=== PATIENT | female | born 1990 | race Caucasian/White ===

== ENCOUNTER → 2016-11-16 | Outpatient (CLI) | payer OTHER | LOC: MW.CHOBGYN 10:26 → MERGE 10:26 | PROVIDERS: ATTEND Nurse Practitioner Women's Health | DX: L68.0 Hirsutism (principal); N92.6 Irregular menstruation, unspecified; R63.5 Abnormal weight gain | CPT/HCPCS: 36415; 82627; 82670; 83001; 83002; 84144; 84146; 84402; 84439; 84443; 84703; G0145 ==

== ENCOUNTER → 2016-11-17 | Outpatient (CLI) | payer OTHER ==
--- NOTE | 2016-11-18 15:11 | US ---
EXAM DATE: 11/17/16 PATIENT'S AGE: 26 Patient: MARYAN [place] Facility: [place], [place] Site . Site : 1990 Study: US Pelvis [id number] 4:09:05 PM Ordering Physician: Brenda Rodriguez Final Report: CLINICAL HISTORY: Irregular periods for 3 to 4 month. TECHNIQUE: Real time, hawkins scale images were acquired of the pelvis using a transvaginal approach. Color Doppler analysis was performed of the ovaries. FINDINGS: The uterus measures 9.1 x 3.6 x 3.0 cm. Endometrial stripe measures 1 cm. Tiny amount of fluid noted in the endocervical canal . The ovaries demonstrate normal follicular development. The right ovary measures 2.6 x 1.5 x 1.8cm in size and the left ovary measures 2.6 x 1.9 x 2.7 T. The ovaries demonstrate normal blood flow on color Doppler analysis. There are no suspicious fluid collections within the cul-de-sac. IMPRESSION: Unremarkable pelvic ultrasound. 1 centimeter endometrial stripe. Dictated by Marika Jack MD @ Nov 18 2016 9:43AM (Electronic Signature) Report Signed by Proxy and Original Signed Document filed in the Medical Record. MTDD
== END ==
LOC: MW.US 14:40
PROVIDERS: ATTEND Nurse Practitioner Women's Health
DX: N92.6 Irregular menstruation, unspecified (principal); R63.5 Abnormal weight gain
CPT/HCPCS: 76830; 76830-26

== ENCOUNTER 2018-08-03 20:38 | Inpatient (IN) | payer OTHER ==
[2018-08-03] MEDS ORDERED: Butorphanol 1 MG/ML SDV IVPUSH PRN (22:16)
[2018-08-03] MEDS ORDERED: Water For Irrigation,Sterile 1,000 ML Container IRR PRN (22:16)
[2018-08-03] MEDS ORDERED: Sodium Chloride 0.9% 10 ML Syringe FLUSH PRN (22:16)
[2018-08-03] MEDS ORDERED: Misoprostol 200 MCG Tab PO PRN (22:16)
[2018-08-03] MEDS ORDERED: Sodium Chloride 0.9% 2.5 ML Syringe FLUSH PRN (22:16)
[2018-08-03] MEDS ORDERED: Lidocaine 1% 50 ML MDV INJECT PRN (22:16)
[2018-08-03] MEDS ORDERED: Methylergonovine 0.2 MG/1 ML Amp IM PRN (22:16)
[2018-08-03] MEDS ORDERED: Carboprost Tromethamine 250 MCG/1 ML Amp IM PRN (22:16)
[2018-08-03] MEDS ORDERED: Tranexamic Acid 1,000 MG in Sodium Chloride 0.9% 100 ML IV PRN (22:16)
[2018-08-03] MEDS ORDERED: NIFEdipine 30 MG Tab.ER PO ONE (22:19)
[2018-08-03] MEDS ORDERED: Terbutaline 1 MG/ML SDV SUBCUT PRN (22:20)
[2018-08-03] MEDS ORDERED: Misoprostol 25 MCG (1/4 of 100 MCG) Tab VAG PRN ×2 (22:20)
[2018-08-03] MEDS ORDERED: Misoprostol 25 MCG (1/4 of 100 MCG) Tab PO ONE (22:22)
[2018-08-03] MEDS ORDERED: Oxytocin/0.9 % Sodium Chloride 30 UNIT/500 ML BAG IV SCH ×2 (22:30)
[2018-08-03] MEDS ORDERED: Ampicillin 2 GM in Sodium Chloride 0.9% 100 ML IV ONE (23:18)
[2018-08-04] MEDS ORDERED: Misoprostol 25 MCG (1/4 of 100 MCG) Tab PO PRN (03:30)
[2018-08-04] MEDS: Nalbuphine 10 MG/1 ML Vial IVPUSH PRN ×2 (04:22→08:53)
[2018-08-04] MEDS: Ampicillin 1 GM in Sodium Chloride 0.9% 50 ML IV SCH ×4 (05:10→18:38)
[2018-08-04] MEDS ORDERED: Ampicillin 1 GM in Sodium Chloride 0.9% 50 ML IV SCH (05:30)
--- NOTE | 2018-08-04 08:09 | PCM.LDHP ---
L&D History of Present Illness - General Date of Service: 08/04/18 Admit Problem/Dx: Patient Status Order with Admit Dx/Problem 08/03/18 21:00 Patient Status [ADT] Routine 08/03/18 22:16 Patient Status [ADT] Routine Admission Diagnosis/Problem Admission Diagnosis/Problem Source of Information: Patient History Limitations: Reports: No Limitations - History of Present Illness Improves with: Reports: None Worsens with: Reports: None Associated Symptoms: Reports: N - Related Data Allergies/Adverse Reactions: Allergies Allergy/AdvReac Type Severity Reaction Status Date / Time No Known Allergies Allergy Verified 08/01/18 15:32 Home Medications: Home Meds [id number]/Dha/Fish Oil [ Gummies] 1 each PO DAILY 07/22/18 [ History] Omeprazole Magnesium [Prilosec Otc] 1 cap PO DAILY 07/25/18 [History] Acetaminophen [Tylenol Extra Strength] 1,000 mg PO Q6HR PRN 08/03/18 [History] NIFEdipine [Nifedipine ER] 1 tab PO DAILY 08/03/18 [History] Past Medical History Gastrointestinal History: Reports: Other (See Below) Other Gastrointestinal History: Appendix removal with some of her large intestines [employer] History: Reports: Polycystic Ovaries, Musculoskeletal History: Reports: Other (See Below) Other Musculoskeletal History: Scoliosis Psychiatric History: Reports: Anxiety Endocrine/Metabolic History: Reports: Obesity/BMI 30+ Dermatologic History: Reports: Psoriasis - Infectious Disease History Infectious Disease History: Reports: Chicken Pox - Past Surgical History GI Surgical History: Reports: Appendectomy Musculoskeletal Surgical History: Reports: None Social & Family History - Family History HEENT: Reports: Impaired Vision Cardiac: Reports: Hypertension OBGYN: Reports: Neurological: Reports: Seizure Psychiatric: Reports: ADHD, Anxiety, Bipolar, Depression, Learning Disability, Panic Attack Endocrine/Metabolic: Reports: Diabetes, type II Dermatologic: Reports: Psoriasis Oncologic: Reports: Bone, Cervix - Tobacco Use Smoking Status *Q: Never Smoker Second Hand Smoke Exposure: No - Caffeine Use Caffeine Use: Reports: Soda Other Caffeine Use: Occasionally - Recreational Drug Use Recreational Drug Use: No H&P Review of Systems - Review of Systems: Review Of Systems: See Below General: Reports: No Symptoms HEENT: Reports: No Symptoms Pulmonary: Reports: No Symptoms Cardiovascular: Reports: No Symptoms Gastrointestinal: Reports: No Symptoms Genitourinary: Reports: No Symptoms Musculoskeletal: Reports: No Symptoms Skin: Reports: No Symptoms Psychiatric: Reports: No Symptoms Neurological: Reports: No Symptoms Hematologic/Lymphatic: Reports: No Symptoms Immunologic: Reports: No Symptoms L&D Exam - Exam Exam: See Below - Vital Signs Vital Signs: Last Vital Signs Temp Pulse Resp BP 157/91 H 08/03/18 23:28 Pulse Ox Weight: 130.635 kg - OB Specific Fundal Height In cm: 38 Contraction Intensity: Mild to Moderate Movement: Active Heart Tones: Present Presentation: Vertex - Stewart Score Stewart Score Cervix Position: Midposition Stewart Score Consistency: Soft Stewart Score Effacement: 51-70% Stewart Score Dilation: 1-2 cm Stewart Score 's Station: -3 Stewart Score Total: 6 - Exam General: Alert, Oriented HEENT: PERRLA, Conjunctiva Clear, EACs Clear, EOMI, Hearing Intact, Mucosa Moist & [place], Nares Patent, Normal Nasal Septum, Posterior Pharynx Clear, TMs Clear Neck: Supple, Trachea Midline Lungs: Clear to Auscultation, Normal Respiratory Effort Cardiovascular: Regular Rate, Regular Rhythm GI/Abdominal Exam: Normal Bowel Sounds, Soft, Non-Tender, No Organomegaly, No Distention, No Abnormal Bruit, No Mass, Pelvis Stable Rectal Exam: Normal Exam, Normal Rectal Tone Genitourinary: Normal external exam, Normal bimanual exam, Normal speculum exam Back Exam: Normal Inspection, Full Range of Motion Extremities: Normal Inspection, Normal Range of Motion, Non-Tender, No Pedal Edema, Normal Capillary Refill Skin: Warm, Dry, Intact Neurological: Cranial Nerves Intact, Reflexes Equal Bilateral Psychiatric: Alert, Normal Affect, Normal Mood - Patient Data Lab Results Last 24 hrs: Laboratory Results - last 24 hr 08/03/18 08/03/18 08/03/18 Range/Units 21:01 22:51 22:51 WBC 11.92 H (4.0-11.0) K/uL RBC 4.11 L (4.30-5.90) M/uL Hgb 11.6 L (12.0-16.0) g/dL Hct 34.4 L (36.0-46.0) % MCV 83.7 (80.0-98.0) fL MCH 28.2 (27.0-32.0) pg MCHC 33.7 (31.0-37.0) g/dL RDW Std Deviation 40.6 (28.0-62.0) fl RDW Coeff of Juan 13 (11.0-15.0) % Plt Count 214 (150-400) K/uL MPV 11.30 (7.40-12.00) fL Nucleated RBC % 0.0 /100WBC Nucleated RBCs # 0 K/uL Membrane Rupture POSITIVE Blood Type A POSITIVE Antibody Screen NEGATIVE Result Diagrams: 08/03/18 22:51 Problem List Initiated/Reviewed/Updated: Yes Orders Last 24hrs: Active Orders 24 hr Category Date Time Status Patient Status [ADT] Routine ADT 08/03/18 22:16 Active Bedrest Bathroom Privileges [RC] ASDIRECTED Care 08/03/18 22:20 Active Communication Order [RC] ASDIRECTED Care 08/03/18 22:20 Active Communication Order [RC] ASDIRECTED Care 08/03/18 22:20 Active Communication Order [RC] ASDIRECTED Care 08/03/18 22:20 Active Heart Tones [RC] CONTINUOUS Care 08/03/18 22:16 Active Non Stress Test [RC] PER UNIT ROUTINE Care 08/03/18 21:00 Active Non Stress Test [RC] PER UNIT ROUTINE Care 08/03/18 22:16 Active May Shower [RC] ASDIRECTED Care 08/03/18 22:16 Active Notify Provider [RC] PRN Care 08/03/18 22:16 Active Notify Provider [RC] PRN Care 08/03/18 22:20 Active Notify Provider [RC] PRN Care 08/03/18 22:20 Active Notify Provider [RC] STAT Care 08/03/18 22:20 Active Up ad Aide [RC] ASDIRECTED Care 08/03/18 21:00 Active Up ad Aide [RC] ASDIRECTED Care 08/03/18 22:16 Active Vaginal Exam [RC] Click to Edit Care 08/03/18 21:00 Active Vaginal Exam [RC] PRN Care 08/03/18 22:20 Active Vital Signs [RC] PER UNIT ROUTINE Care 08/03/18 21:00 Active Vital Signs [RC] PER UNIT ROUTINE Care 08/03/18 22:20 Active Regular Diet [DIET] Diet 08/04/18 Breakfast Active Ampicillin 1 gm Med 08/04/18 05:15 Active Sodium Chloride 0.9% [Normal Saline] 50 ml IV Q4H Butorphanol [Stadol] Med 08/03/18 22:16 Active 1 mg IVPUSH Q1H PRN Carboprost Tromethamine [Hemabate DS] Med 08/03/18 22:16 Active 250 mcg IM ASDIRECTED PRN Lactated Ringers [Ringers, Lactated] 1,000 ml Med 08/03/18 22:30 Active IV ASDIRECTED Lidocaine 1% [Xylocaine 1%] Med 08/03/18 22:16 Active 50 ml INJECT ONETIME PRN Methylergonovine [Methergine] Med 08/03/18 22:16 Active 0.2 mg IM ASDIRECTED PRN Nalbuphine [Nubain] Med 08/03/18 22:16 Active 10 mg IVPUSH Q1H PRN Oxytocin/0.9 % Sodium Chloride [Oxytocin 30 Unit/500 ML Med 08/03/18 22:30 Active -NS] 30 unit in 500 ml IV TITRATE Oxytocin/0.9 % Sodium Chloride [Oxytocin 30 Unit/500 ML Med 08/03/18 22:30 Active -NS] 30 unit in 500 ml IV TITRATE Sodium Chloride 0.9% [Saline Flush] Med 08/03/18 22:16 Active 10 ml FLUSH ASDIRECTED PRN Sodium Chloride 0.9% [Saline Flush] Med 08/03/18 22:16 Active 2.5 ml FLUSH ASDIRECTED PRN Terbutaline [Brethine] Med 08/03/18 22:20 Active 0.25 mg SUBCUT ASDIRECTED PRN Tranexamic Acid [Cyklokapron] 1,000 mg Med 08/03/18 22:16 Active Sodium Chloride 0.9% [Normal Saline] 100 ml IV ONETIME Water For Irrigation,Sterile [Sterile Water for Med 08/03/18 22:16 Active Irrigation] 1,000 ml IRR ASDIRECTED PRN miSOPROStol [Cytotec] Med 08/03/18 22:16 Active 200 mcg PO ONETIME PRN miSOPROStol [Cytotec] Med 08/04/18 03:30 Active 25 mcg PO ONETIME PRN miSOPROStol [Cytotec] Med 08/03/18 22:20 Active 25 mcg VAG ONETIME PRN miSOPROStol [Cytotec] Med 08/03/18 22:20 Active 25 mcg VAG Q4H PRN Scalp Electrode [WOMSER] Per Unit Routine Oth 08/03/18 22:16 Ordered Medication Administration Instruction [OM.PC] Q3H Oth 08/03/18 22:30 Ordered Peripheral IV Insertion Adult [OM.PC] Routine Oth 08/03/18 22:16 Ordered Resuscitation Status Routine Resus Stat 08/03/18 21:00 Ordered Medication Orders Butorphanol Tartrate (Stadol) 1 mg IVPUSH Q1H PRN PRN Reason: Pain Carboprost Tromethamine (Hemabate Ds) 250 mcg IM ASDIRECTED PRN PRN Reason: Post Hemorrhage Tranexamic Acid 1,000 mg/ (Sodium Chloride) 110 mls @ 660 mls/hr IV ONETIME PRN PRN Reason: Bleeding Lactated Ringer's (Ringers, Lactated) 1,000 mls @ 150 mls/hr IV ASDIRECTED CONRADO Oxytocin/Sodium Chloride (Oxytocin 30 Unit/500 Ml-Ns) 30 unit in 500 mls @ 500 mls/hr IV TITRATE CONRADO Oxytocin/Sodium Chloride (Oxytocin 30 Unit/500 Ml-Ns) 30 unit in 500 mls @ 2 mls/hr IV TITRATE CONRADO; Protocol Ampicillin Sodium 1 gm/ Sodium (Chloride) 50 mls @ 100 mls/hr IV Q4H CONRADO Last Admin: 08/04/18 05:10 Dose: 100 mls/hr Lidocaine HCl (Xylocaine 1%) 50 ml INJECT ONETIME PRN PRN Reason: Laceration repair Methylergonovine Maleate (Methergine) 0.2 mg IM ASDIRECTED PRN PRN Reason: Post Hemorrhage Misoprostol (Cytotec) 200 mcg PO ONETIME PRN PRN Reason: Post Hemorrhage Misoprostol (Cytotec) 25 mcg VAG ONETIME PRN PRN Reason: Cervical Ripening Last Admin: 08/03/18 23:40 Dose: 25 mcg Misoprostol (Cytotec) 25 mcg VAG Q4H PRN PRN Reason: Cervical Ripening Last Admin: 08/04/18 03:45 Dose: 25 mcg Misoprostol (Cytotec) 25 mcg PO ONETIME PRN PRN Reason: inadequate contractions Last Admin: 08/04/18 03:51 Dose: 25 mcg Nalbuphine HCl (Nubain) 10 mg IVPUSH Q1H PRN PRN Reason: Pain (severe 7-10) Last Admin: 08/04/18 04:22 Dose: 10 mg Sodium Chloride (Saline Flush) 10 ml FLUSH ASDIRECTED PRN PRN Reason: Keep Vein Open Sodium Chloride (Saline Flush) 2.5 ml FLUSH ASDIRECTED PRN PRN Reason: Keep Vein Open Sterile Water (Sterile Water For Irrigation) 1,000 ml IRR ASDIRECTED PRN PRN Reason: delivery Terbutaline Sulfate (Brethine) 0.25 mg SUBCUT ASDIRECTED PRN PRN Reason: Tacysystole Assessment/Plan Comment:: 36+6 iup ,chronic hypertension. admitted with SROM confirmed. we will start induction with Cytotec and pitocin as per protocol.
[2018-08-04] MEDS ORDERED: NIFEdipine 30 MG Tab.ER PO ONE (08:39)
[2018-08-04] MEDS: Lactated Ringers 1,000 ML IV SCH ×2 (10:18→18:38)
--- NOTE | 2018-08-04 10:38 | PCM.PREANE ---
Preanesthetic Assessment - Anesthesia/Transfusion/Family Hx Anesthesia History: Prior Anesthesia Without Reaction Transfusion History: No Prior Transfusion(s) - Review of Systems General: No Symptoms Pulmonary: No Symptoms Cardiovascular: No Symptoms Gastrointestinal: No Symptoms Neurological: No Symptoms Other: Reports: None - Physical Assessment Blood Pressure: 148/81 Vital Signs: Last Vital Signs Temp Pulse Resp BP 148/81 H 08/04/18 09:16 Pulse Ox Height: 5 ft 4 in Weight: 130.635 kg ASA Class: 2 Mental Status: Alert & Oriented x3 Airway Class: Mallampati = 2 Dentition: Reports: Normal Dentition Thyro-Mental Finger Breadths: 3 Mouth Opening Finger Breadths: 3 ROM/Head Extension: Full Lungs: Clear to Auscultation, Normal Respiratory Effort Cardiovascular: Regular Rate, Regular Rhythm - Lab Values: Laboratory Last Values WBC 11.92 K/uL (4.0-11.0) H 08/03/18 22:51 RBC 4.11 M/uL (4.30-5.90) L 08/03/18 22:51 Hgb 11.6 g/dL (12.0-16.0) L 08/03/18 22:51 Hct 34.4 % (36.0-46.0) L 08/03/18 22:51 MCV 83.7 fL (80.0-98.0) 08/03/18 22:51 MCH 28.2 pg (27.0-32.0) 08/03/18 22:51 MCHC 33.7 g/dL (31.0-37.0) 08/03/18 22:51 RDW Std Deviation 40.6 fl (28.0-62.0) 08/03/18 22:51 RDW Coeff of Juan 13 % (11.0-15.0) 08/03/18 22:51 Plt Count 214 K/uL (150-400) 08/03/18 22:51 MPV 11.30 fL (7.40-12.00) 08/03/18 22:51 Nucleated RBC % 0.0 /100WBC 08/03/18 22:51 Nucleated RBCs # 0 K/uL 08/03/18 22:51 Membrane Rupture POSITIVE 08/03/18 21:01 Blood Type A POSITIVE 08/03/18 22:51 Antibody Screen NEGATIVE 08/03/18 22:51 - Allergies Allergies/Adverse Reactions: Allergies Allergy/AdvReac Type Severity Reaction Status Date / Time No Known Allergies Allergy Verified 08/01/18 15:32 - Acknowledgements Anesthesia Type Planned: Epidural Pt an Appropriate Candidate for the Planned Anesthesia: Yes Alternatives and Risks of Anesthesia Discussed w Pt/Guardian: Yes Pt/Guardian Understands and Agrees with Anesthesia Plan: Yes PreAnesthesia Questionnaire HEENT History: Reports: None Cardiovascular History: Reports: None Respiratory History: Reports: None Gastrointestinal History: Reports: Other (See Below) Other Gastrointestinal History: Appendix removal with some of her large intestines Genitourinary History: Reports: None ENOLOGIST History: Reports: Polycystic Ovaries, : 1 Para: 0 LMP (Approximate): Musculoskeletal History: Reports: Other (See Below) Other Musculoskeletal History: Scoliosis Neurological History: Reports: None Psychiatric History: Reports: Anxiety Endocrine/Metabolic History: Reports: Obesity/BMI 30+ Hematologic History: Reports: None Immunologic History: Reports: None Oncologic (Cancer) History: Reports: None Dermatologic History: Reports: Psoriasis - Infectious Disease History Infectious Disease History: Reports: Chicken Pox - Past Surgical History GI Surgical History: Reports: Appendectomy Musculoskeletal Surgical History: Reports: None - SUBSTANCE USE Smoking Status *Q: Never Smoker Tobacco Use Within Last Twelve Months: No Second Hand Smoke Exposure: No Recreational Drug Use History: No - HOME MEDS Home Medications: Home Meds [id number]/Omega3/Dha/Fish Oil [ Gummies] 1 each PO DAILY 07/22/18 [ History] Omeprazole Magnesium [Prilosec Otc] 1 cap PO DAILY 07/25/18 [History] Acetaminophen [Tylenol Extra Strength] 1,000 mg PO Q6HR PRN 08/03/18 [History] NIFEdipine [Nifedipine ER] 1 tab PO DAILY 08/03/18 [History] - CURRENT (IN HOUSE) MEDS Current Meds: Current Medications Butorphanol Tartrate (Stadol) 1 mg IVPUSH Q1H PRN PRN Reason: Pain Carboprost Tromethamine (Hemabate Ds) 250 mcg IM ASDIRECTED PRN PRN Reason: Post Hemorrhage Tranexamic Acid 1,000 mg/ (Sodium Chloride) 110 mls @ 660 mls/hr IV ONETIME PRN PRN Reason: Bleeding Lactated Ringer's (Ringers, Lactated) 1,000 mls @ 150 mls/hr IV ASDIRECTED CONRADO Last Admin: 08/04/18 10:18 Dose: 999 mls/hr Oxytocin/Sodium Chloride (Oxytocin 30 Unit/500 Ml-Ns) 30 unit in 500 mls @ 500 mls/hr IV TITRATE CONRADO Oxytocin/Sodium Chloride (Oxytocin 30 Unit/500 Ml-Ns) 30 unit in 500 mls @ 2 mls/hr IV TITRATE CONRADO; Protocol Last Admin: 08/04/18 08:58 Dose: 2 munits/min, 2 mls/hr Ampicillin Sodium 1 gm/ Sodium (Chloride) 50 mls @ 100 mls/hr IV Q4H CONRADO Last Admin: 08/04/18 09:17 Dose: 100 mls/hr Lidocaine HCl (Xylocaine 1%) 50 ml INJECT ONETIME PRN PRN Reason: Laceration repair Methylergonovine Maleate (Methergine) 0.2 mg IM ASDIRECTED PRN PRN Reason: Post Hemorrhage Misoprostol (Cytotec) 200 mcg PO ONETIME PRN PRN Reason: Post Hemorrhage Misoprostol (Cytotec) 25 mcg VAG ONETIME PRN PRN Reason: Cervical Ripening Last Admin: 08/03/18 23:40 Dose: 25 mcg Misoprostol (Cytotec) 25 mcg VAG Q4H PRN PRN Reason: Cervical Ripening Last Admin: 08/04/18 03:45 Dose: 25 mcg Misoprostol (Cytotec) 25 mcg PO ONETIME PRN PRN Reason: inadequate contractions Last Admin: 08/04/18 03:51 Dose: 25 mcg Nalbuphine HCl (Nubain) 10 mg IVPUSH Q1H PRN PRN Reason: Pain (severe 7-10) Last Admin: 08/04/18 08:53 Dose: 10 mg Sodium Chloride (Saline Flush) 10 ml FLUSH ASDIRECTED PRN PRN Reason: Keep Vein Open Sodium Chloride (Saline Flush) 2.5 ml FLUSH ASDIRECTED PRN PRN Reason: Keep Vein Open Sterile Water (Sterile Water For Irrigation) 1,000 ml IRR ASDIRECTED PRN PRN Reason: delivery Terbutaline Sulfate (Brethine) 0.25 mg SUBCUT ASDIRECTED PRN PRN Reason: Tacysystole Discontinued Medications Ampicillin Sodium 2 gm/ Sodium (Chloride) 100 mls @ 200 mls/hr IV ONETIME ONE Stop: 08/03/18 23:47 Last Admin: 08/04/18 00:02 Dose: 200 mls/hr Ampicillin Sodium 1 gm/ Sodium (Chloride) 50 mls @ 100 mls/hr IV Q6H CONRADO Misoprostol (Cytotec) 25 mcg PO ONETIME ONE Stop: 08/03/18 22:23 Last Admin: 08/03/18 23:31 Dose: 25 mcg Nifedipine (Procardia Xl) 30 mg PO ONETIME ONE Stop: 08/03/18 22:20 Last Admin: 08/03/18 23:28 Dose: 30 mg Nifedipine (Procardia Xl) 30 mg PO ONETIME ONE Stop: 08/04/18 08:40 Last Admin: 08/04/18 09:16 Dose: 30 mg
[2018-08-04] MEDS ORDERED: oxyCODONE 5 MG Tab PO PRN (23:14)
[2018-08-04] MEDS ORDERED: Lanolin 100% Cream 7 GM Tube TOP PRN (23:14)
[2018-08-04] MEDS ORDERED: Witch Hazel Medicated Pads 40/Jar TOP PRN (23:14)
[2018-08-04] MEDS ORDERED: Bisacodyl 10 MG Supp RECTAL PRN (23:14)
[2018-08-04] MEDS ORDERED: Acetaminophen 500 MG Tab PO PRN ×2 (23:14)
[2018-08-04] MEDS ORDERED: Ibuprofen 400 MG Tab PO PRN (23:14)
[2018-08-04] MEDS ORDERED: Benzocaine/Menthol 20%-0.5% Spray 78 GM Cannister TOP PRN (23:14)
[2018-08-05] MEDS: Ibuprofen 800 MG Tab PO PRN ×4 (02:27→22:31)
[2018-08-05] MEDS: Ampicillin 1 GM in Sodium Chloride 0.9% 50 ML IV SCH (03:08)
--- NOTE | 2018-08-05 03:32 | OR ---
SURGEON: Luis Enrique Medina MD DATE OF PROCEDURE: Ms. Jara is a 28-year-old patient, primigravida. She is followed in our clinic primarily by me. Her is complicated with hypertension early on in the . She has a history of chronic hypertension. The patient was placed on Procardia for blood pressure medicine and bedrest, and she followed according to the high-risk protocol with a regular scheduled NST. All of them is normal. The patient is supposed to be induced at 37 weeks, however, at 36 plus 6, she came to Labor and Delivery with spontaneous rupture of the membrane that was confirmed. At the time of admission, she was dilated 1, 80%, vertex, and -3 and her GBS status was unknown, so she is started on antibiotic according to the protocol, and we started inducing her with Cytotec and Pitocin. The patient responded to the Cytotec since she went to 4 cm and after that she had epidural anesthesia for labor analgesia and then Pitocin is employed to enhance her labor. The patient progressed nicely. heart rate was essentially category 1 through the entire process of labor. The patient became complete and after pushing for an hour and a half, she was able to accomplish normal spontaneous vaginal delivery of a male fetus. score and the weight are not available at the time of the dictation. The placenta delivered spontaneous, complete, and intact and on inspection of the perineum, there was a very small right labial laceration. However, it was not bleeding, but I went ahead and repaired with 3-0 in the usual manner without any problem. Estimated blood loss was 350 to 400 mL. The heart rate was category 1 through the entire process of labor. There was no complication during the labor and delivery process. DNIO / ROSSY /[id number]
--- NOTE | 2018-08-05 07:45 | PCM.PNPP ---
- General Info Date of Service: 08/05/18 Subjective Update: The patient fadia 28 year old female, now , who is post day 1 from [facility] fo a viable baby boy. She reports she and baby are doing well. She has been ambulating without difficulty. She has urinated but not had a bowel movement yet. Her vaginal bleeding is similar to a normal period but decreasing. Her pain is controlled, she reports more cramping than pain. She is . Patient has a history of HTN but BP this morning was 126/75. Functional Status: Reports: Pain Controlled - Review of Systems General: Reports: No Symptoms HEENT: Reports: No Symptoms Pulmonary: Reports: No Symptoms Cardiovascular: Reports: No Symptoms Gastrointestinal: Reports: No Symptoms Genitourinary: Reports: No Symptoms Musculoskeletal: Reports: No Symptoms Skin: Reports: No Symptoms Neurological: Reports: No Symptoms Psychiatric: Reports: No Symptoms - General Info Date of Service: 08/05/18 - Patient Data Vital Signs - Most Recent: Last Vital Signs Temp 98.1 F 08/05/18 04:15 Pulse 100 08/05/18 04:15 Resp 16 08/05/18 04:15 BP 126/75 08/05/18 04:15 Pulse Ox 97 08/05/18 04:15 Weight - Most Recent: 130.635 kg I&O - Last 24 Hours: Intake & Output 08/04/18 08/05/18 08/05/18 22:59 06:59 14:59 Output Total 600 Balance -600 Lab Results - Last 24 Hours: Laboratory Results - last 24 hr 08/05/18 Range/Units 04:37 Hgb 9.4 L (12.0-16.0) g/dL Hct 28.5 L (36.0-46.0) % Med Orders - Current: Current Medications Acetaminophen (Tylenol Extra Strength) 500 mg PO Q4H PRN PRN Reason: Pain Last Admin: 08/05/18 06:48 Dose: 500 mg Acetaminophen (Tylenol Extra Strength) 1,000 mg PO Q4H PRN PRN Reason: Pain Benzocaine/Menthol (Dermoplast Pain Relief 20%-0.5% [place]) 78 gm TOP ASDIRECTED PRN PRN Reason: Perineal Comfort Measure Last Admin: 08/05/18 02:29 Dose: 78 gm Bisacodyl (Dulcolax) 10 mg RECTAL ONETIME PRN PRN Reason: Constipation Docusate Sodium (Colace) 100 mg PO BID PRN PRN Reason: Constipation Emollient Ointment (Lansinoh Hpa) 0 gm TOP ASDIRECTED PRN PRN Reason: Sore Nipples Ibuprofen (Motrin) 400 mg PO Q4H PRN PRN Reason: Pain Ibuprofen (Motrin) 800 mg PO Q6H PRN PRN Reason: Pain Last Admin: 08/05/18 02:27 Dose: 800 mg Oxycodone HCl (Oxycodone) 5 mg PO Q2H PRN PRN Reason: Pain Witch Lotus (Tucks) 1 pad TOP ASDIRECTED PRN PRN Reason: comfort care Last Admin: 08/05/18 02:28 Dose: 1 pad Discontinued Medications Butorphanol Tartrate (Stadol) 1 mg IVPUSH Q1H PRN PRN Reason: Pain Carboprost Tromethamine (Hemabate Ds) 250 mcg IM ASDIRECTED PRN PRN Reason: Post Hemorrhage Tranexamic Acid 1,000 mg/ (Sodium Chloride) 110 mls @ 660 mls/hr IV ONETIME PRN PRN Reason: Bleeding Lactated Ringer's (Ringers, Lactated) 1,000 mls @ 150 mls/hr IV ASDIRECTED CONRADO Last Admin: 08/04/18 18:38 Dose: 150 mls/hr Oxytocin/Sodium Chloride (Oxytocin 30 Unit/500 Ml-Ns) 30 unit in 500 mls @ 500 mls/hr IV TITRATE [facility] Oxytocin/Sodium Chloride (Oxytocin 30 Unit/500 Ml-Ns) 30 unit in 500 mls @ 2 mls/hr IV TITRATE [facility]; Protocol Last Titration: 08/04/18 17:27 Dose: 16 munits/min, 16 mls/hr Ampicillin Sodium 2 gm/ Sodium (Chloride) 100 mls @ 200 mls/hr IV ONETIME ONE Stop: 08/03/18 23:47 Last Admin: 08/04/18 00:02 Dose: 200 mls/hr Ampicillin Sodium 1 gm/ Sodium (Chloride) 50 mls @ 100 mls/hr IV Q6H CONRAD[place] Ampicillin Sodium 1 gm/ Sodium (Chloride) 50 mls @ 100 mls/hr IV Q4H CONRADO Last Admin: 08/05/18 03:08 Dose: Not Given Fentanyl/Bupivacaine HCl (Mzqrgoyp-Eivxi-Al 2 Mcg/Ml-0.125%) Confirm Administered Dose 100 mls @ as directed .ROUTE .ST-MED ONE Stop: 08/04/18 10:43 Fentanyl/Bupivacaine HCl (Dbbrvnpn-Rbaad-Kn 2 Mcg/Ml-0.125%) Confirm Administered Dose 100 mls @ as directed .ROUTE .[facility] [[email or web address]]MED ONE Stop: 08/04/18 18:43 Lidocaine HCl (Xylocaine 1%) 50 ml INJECT ONETIME PRN PRN Reason: Laceration repair Methylergonovine Maleate (Methergine) 0.2 mg IM ASDIRECTED PRN PRN Reason: Post Hemorrhage Misoprostol (Cytotec) 200 mcg PO ONETIME PRN PRN Reason: Post Hemorrhage Misoprostol (Cytotec) 25 mcg VAG ONETIME PRN PRN Reason: Cervical Ripening Last Admin: 08/03/18 23:40 Dose: 25 mcg Misoprostol (Cytotec) 25 mcg VAG Q4H PRN PRN Reason: Cervical Ripening Last Admin: 08/04/18 03:45 Dose: 25 mcg Misoprostol (Cytotec) 25 mcg PO ONETIME ONE Stop: 08/03/18 22:23 Last Admin: 08/03/18 23:31 Dose: 25 mcg Misoprostol (Cytotec) 25 mcg PO ONETIME PRN PRN Reason: inadequate contractions Last Admin: 08/04/18 03:51 Dose: 25 mcg Nalbuphine HCl (Nubain) 10 mg IVPUSH Q1H PRN PRN Reason: Pain (severe 7-10) Last Admin: 08/04/18 08:53 Dose: 10 mg Nifedipine (Procardia Xl) 30 mg PO ONETIME ONE Stop: 08/03/18 22:20 Last Admin: 08/03/18 23:28 Dose: 30 mg Nifedipine (Procardia Xl) 30 mg PO ONETIME ONE Stop: 08/04/18 08:40 Last Admin: 08/04/18 09:16 Dose: 30 mg Sodium Chloride (Saline Flush) 10 ml FLUSH ASDIRECTED PRN PRN Reason: Keep Vein Open Sodium Chloride (Saline Flush) 2.5 ml FLUSH ASDIRECTED PRN PRN Reason: Keep Vein Open Sterile Water (Sterile Water For Irrigation) 1,000 ml IRR ASDIRECTED PRN PRN Reason: delivery Terbutaline Sulfate (Brethine) 0.25 mg SUBCUT ASDIRECTED PRN PRN Reason: Tacysystole - Infant Interaction Disposition, : Watson at Bedside Feeding: Difficulty with Latch-on Support Person: - Recovery Exam Fundal Tone: Firm Fundal Level: 1 Fingerbreadths Below Umbilicus Fundal Placement: Midline Lochia Amount: Scant Lochia Color: Rubra/Red Perineum Description: Intact, Minimal Bruising/Swelling Episiotomy/Laceration: Approximated Bladder Status: Nonpalpable, Voiding Urinary Elimination: Voided - Exam General: Alert, Oriented, Cooperative HEENT: Pupils Equal, Pupils Reactive Lungs: Clear to Auscultation, Normal Respiratory Effort Cardiovascular: Regular Rate, Regular Rhythm GI/Abdominal Exam: Normal Bowel Sounds, Soft Extremities: Normal Inspection, No Pedal Edema Skin: Warm, Dry Neurological: No New Focal Deficit Psy/Mental Status: Alert, Normal Affect, Normal Mood - Problem List Review Problem List Initiated/Reviewed/Updated: Yes - My Orders Last 24 Hours: My Active Orders 08/04/18 23:14 Patient Status [ADT] Routine May Shower [RC] ASDIRECTED Up ad Aide [RC] ASDIRECTED Vital Signs [RC] PER UNIT ROUTINE Acetaminophen [Tylenol Extra Strength] 1,000 mg PO Q4H PRN Acetaminophen [Tylenol Extra Strength] 500 mg PO Q4H PRN Benzocaine/Menthol [Dermoplast Pain Relief 20%-0.5% [place]] 78 gm TOP ASDIRECTED PRN Bisacodyl [Dulcolax] 10 mg RECTAL ONETIME PRN Docusate Sodium [Colace] 100 mg PO BID PRN Ibuprofen [Motrin] 400 mg PO Q4H PRN Ibuprofen [Motrin] 800 mg PO Q6H PRN Lanolin [Lansinoh HPA] See Dose Instructions TOP ASDIRECTED PRN Witch Lotus [Tucks] 1 pad TOP ASDIRECTED PRN oxyCODONE 5 mg PO Q2H PRN Assess Lochia [WOMSER] Per Unit Routine Assess Uterine Involution [WOMSER] Per Unit Routine Peripheral IV Discontinue [OM.PC] Routine Resuscitation Status Routine 08/05/18 Breakfast Regular Diet [DIET] - Plan Plan:: 28 year old female, , post day 1 of of baby boy. Patient doing well. Continue routine post care. Continue monitoring blood pressures.
--- NOTE | 2018-08-05 07:49 | PCM48HPAN ---
Post Anesthesia Note - EVALUATION WITHIN 48HRS OF ANESTHETIC Vital Signs in Normal Range: Yes Patient Participated in Evaluation: Yes Respiratory Function Stable: Yes Airway Patent: Yes Cardiovascular Function Stable: Yes Hydration Status Stable: Yes Pain Control Satisfactory: Yes Nausea and Vomiting Control Satisfactory: Yes Mental Status Recovered: Yes Resp Rate: 16 Blood Pressure: 148/81 - COMMENTS/OBSERVATIONS Free Text/Narrative:: Pt is in bed and states she has been up with no problems since her epidural was pulled. Pt denies any complaints.
[2018-08-05] MEDS: Docusate Sodium 100 MG Cap PO PRN ×2 (10:19→20:56)
[2018-08-05] MEDS: NIFEdipine 30 MG Tab.ER PO SCH (20:55)
[2018-08-06] MEDS: Ibuprofen 800 MG Tab PO PRN ×2 (05:04→12:01)
[2018-08-06] MEDS: NIFEdipine 30 MG Tab.ER PO SCH (08:46)
--- NOTE | 2018-08-06 09:59 | PCM.DCSUM1 ---
Discharge Summary - Hospital Course Diagnosis: Stroke: No - Discharge Data Discharge Date: 08/06/18 Discharge Disposition: Home, Self-Care 01 Condition: Good - Patient Instructions Diet: Usual Diet as Tolerated Activity: As Tolerated Driving: Do Not Drive Showering/Bathing: May Shower Notify Provider of: Fever, Increased Pain - Discharge Plan Home Medications: Home Meds [id number]/Omega3/Dha/Fish Oil [ Gummies] 1 each PO DAILY 07/22/18 [ History] Omeprazole Magnesium [Prilosec Otc] 1 cap PO DAILY 07/25/18 [History] Acetaminophen [Tylenol Extra Strength] 1,000 mg PO Q6HR PRN 08/03/18 [History] NIFEdipine [Nifedipine ER] 1 tab PO DAILY 08/03/18 [History] Referrals: [facility] [Outside] Luis Enrique Medina MD [Physician] - 09/14/18 1:30 pm - Discharge Summary/Plan Comment DC Time >30 min.: Yes - General Info Date of Service: 08/06/18 Functional Status: Reports: Pain Controlled - Review of Systems General: Reports: No Symptoms HEENT: Reports: No Symptoms Pulmonary: Reports: No Symptoms Cardiovascular: Reports: No Symptoms Gastrointestinal: Reports: No Symptoms Genitourinary: Reports: No Symptoms Musculoskeletal: Reports: No Symptoms Skin: Reports: No Symptoms Neurological: Reports: No Symptoms Psychiatric: Reports: No Symptoms - Patient Data Vitals - Most Recent: Last Vital Signs Temp 37.1 C 08/06/18 04:49 Pulse 111 H 08/06/18 04:49 Resp 20 08/06/18 04:49 BP 138/80 08/06/18 08:46 Pulse Ox 99 08/06/18 04:49 Weight - Most Recent: 130.635 kg Med Orders - Current: Current Medications Acetaminophen (Tylenol Extra Strength) 500 mg PO Q4H PRN PRN Reason: Pain Last Admin: 08/05/18 06:48 Dose: 500 mg Acetaminophen (Tylenol Extra Strength) 1,000 mg PO Q4H PRN PRN Reason: Pain Benzocaine/Menthol (Dermoplast Pain Relief 20%-0.5% [place]) 78 gm TOP ASDIRECTED PRN PRN Reason: Perineal Comfort Measure Last Admin: 08/05/18 02:29 Dose: 78 gm Bisacodyl (Dulcolax) 10 mg RECTAL ONETIME PRN PRN Reason: Constipation Docusate Sodium (Colace) 100 mg PO BID PRN PRN Reason: Constipation Last Admin: 08/05/18 20:56 Dose: 100 mg Emollient Ointment (Lansinoh Hpa) 0 gm TOP ASDIRECTED PRN PRN Reason: Sore Nipples Ibuprofen (Motrin) 400 mg PO Q4H PRN PRN Reason: Pain Ibuprofen (Motrin) 800 mg PO Q6H PRN PRN Reason: Pain Last Admin: 08/06/18 05:04 Dose: 800 mg Nifedipine (Procardia Xl) 30 mg PO BID CONRADO Last Admin: 08/06/18 08:46 Dose: 30 mg Oxycodone HCl (Oxycodone) 5 mg PO Q2H PRN PRN Reason: Pain Witch Lotus (Tucks) 1 pad TOP ASDIRECTED PRN PRN Reason: comfort care Last Admin: 08/05/18 02:28 Dose: 1 pad Discontinued Medications Butorphanol Tartrate (Stadol) 1 mg IVPUSH Q1H PRN PRN Reason: Pain Carboprost Tromethamine (Hemabate Ds) 250 mcg IM ASDIRECTED PRN PRN Reason: Post Hemorrhage Tranexamic Acid 1,000 mg/ (Sodium Chloride) 110 mls @ 660 mls/hr IV ONETIME PRN PRN Reason: Bleeding Lactated Ringer's (Ringers, Lactated) 1,000 mls @ 150 mls/hr IV ASDIRECTED CONRADO Last Admin: 08/04/18 18:38 Dose: 150 mls/hr Oxytocin/Sodium Chloride (Oxytocin 30 Unit/500 Ml-Ns) 30 unit in 500 mls @ 500 mls/hr IV TITRATE CONRADO Oxytocin/Sodium Chloride (Oxytocin 30 Unit/500 Ml-Ns) 30 unit in 500 mls @ 2 mls/hr IV TITRATE [facility]; Protocol Last Titration: 08/04/18 17:27 Dose: 16 munits/min, 16 mls/hr Ampicillin Sodium 2 gm/ Sodium (Chloride) 100 mls @ 200 mls/hr IV ONETIME ONE Stop: 08/03/18 23:47 Last Admin: 08/04/18 00:02 Dose: 200 mls/hr Ampicillin Sodium 1 gm/ Sodium (Chloride) 50 mls @ 100 mls/hr IV Q6H CONRADO Ampicillin Sodium 1 gm/ Sodium (Chloride) 50 mls @ 100 mls/hr IV Q4H CONRADO Last Admin: 08/05/18 03:08 Dose: Not Given Fentanyl/Bupivacaine HCl (Thcbwmci-Suzko-Ph 2 Mcg/Ml-0.125%) Confirm Administered Dose 100 mls @ as directed .ROUTE .STK-MED ONE Stop: 08/04/18 10:43 Fentanyl/Bupivacaine HCl (Xjfupjgh-Wopkk-Ui 2 Mcg/Ml-0.125%) Confirm Administered Dose 100 mls @ as directed .ROUTE .STK-MED ONE Stop: 08/04/18 18:43 Lidocaine HCl (Xylocaine 1%) 50 ml INJECT ONETIME PRN PRN Reason: Laceration repair Methylergonovine Maleate (Methergine) 0.2 mg IM ASDIRECTED PRN PRN Reason: Post Hemorrhage Misoprostol (Cytotec) 200 mcg PO ONETIME PRN PRN Reason: Post Hemorrhage Misoprostol (Cytotec) 25 mcg VAG ONETIME PRN PRN Reason: Cervical Ripening Last Admin: 08/03/18 23:40 Dose: 25 mcg Misoprostol (Cytotec) 25 mcg VAG Q4H PRN PRN Reason: Cervical Ripening Last Admin: 08/04/18 03:45 Dose: 25 mcg Misoprostol (Cytotec) 25 mcg PO ONETIME ONE Stop: 08/03/18 22:23 Last Admin: 08/03/18 23:31 Dose: 25 mcg Misoprostol (Cytotec) 25 mcg PO ONETIME PRN PRN Reason: inadequate contractions Last Admin: 08/04/18 03:51 Dose: 25 mcg Nalbuphine HCl (Nubain) 10 mg IVPUSH Q1H PRN PRN Reason: Pain (severe 7-10) Last Admin: 08/04/18 08:53 Dose: 10 mg Nifedipine (Procardia Xl) 30 mg PO ONETIME ONE Stop: 08/03/18 22:20 Last Admin: 08/03/18 23:28 Dose: 30 mg Nifedipine (Procardia Xl) 30 mg PO ONETIME ONE Stop: 08/04/18 08:40 Last Admin: 08/04/18 09:16 Dose: 30 mg Sodium Chloride (Saline Flush) 10 ml FLUSH ASDIRECTED PRN PRN Reason: Keep Vein Open Sodium Chloride (Saline Flush) 2.5 ml FLUSH ASDIRECTED PRN PRN Reason: Keep Vein Open Sterile Water (Sterile Water For Irrigation) 1,000 ml IRR ASDIRECTED PRN PRN Reason: delivery Terbutaline Sulfate (Brethine) 0.25 mg SUBCUT ASDIRECTED PRN PRN Reason: Tacysystole - Exam General: Reports: Alert, Oriented HEENT: Reports: Pupils Equal, Pupils Reactive, EOMI, Mucous Membr. Moist/[place] Neck: Reports: Supple Lungs: Reports: Clear to Auscultation, Normal Respiratory Effort Cardiovascular: Reports: Regular Rate, Regular Rhythm GI/Abdominal Exam: Normal Bowel Sounds, Soft, Non-Tender, No Organomegaly, No Distention, No Abnormal Bruit, No Mass, Pelvis Stable (Female) Exam: Normal External Exam, Normal Speculum Exam, Normal Bimanual Exam Rectal (Female) Exam: Normal Exam, Normal Rectal Tone Back Exam: Reports: Normal Inspection, Full Range of Motion Extremities: Normal Inspection, Normal Range of Motion, Non-Tender, No Pedal Edema, Normal Capillary Refill Skin: Reports: Warm, Dry, Intact Wound/Incisions: Reports: Healing Well Neurological: Reports: No New Focal Deficit Psy/Mental Status: Reports: Alert, Normal Affect, Normal Mood
== END 2018-08-06 13:00 | disposition home or self-care (01) | DRG 806 ==
LOC: MW.OBCHECK 20:38 → MW.OB 22:16 → MW.OBCHECK 22:16 → MW.OB 22:17 → OBSVTOIN 23:05 → MW.OB 08-05 17:35
PROVIDERS: ADMIT Obstetrics & Gynecology; ATTEND Obstetrics & Gynecology
PROC: 10E0XZZ Delivery of Products of Conception, External Approach (ICD-10-PCS; principal; 2018-08-03)
PROC: 3E0P7VZ Introduction of Hormone into Female Reproductive, Via Natural or Artificial Opening (ICD-10-PCS; 2018-08-03)
PROC: 3E033VJ Introduction of Other Hormone into Peripheral Vein, Percutaneous Approach (ICD-10-PCS; 2018-08-03)
PROC: 0HQ9XZZ Repair Perineum Skin, External Approach (ICD-10-PCS; 2018-08-03)
PROC: 00HU33Z Insertion of Infusion Device into Spinal Canal, Percutaneous Approach (ICD-10-PCS; 2018-08-03)
DX: O42.02 Full-term premature rupture of membranes, onset of labor within 24 hours of rupture (principal); O10.92 Unspecified pre-existing hypertension complicating childbirth; Z37.0 Single live birth; O70.0 First degree perineal laceration during delivery; Z3A.36 36 weeks gestation of pregnancy
CPT/HCPCS: 36415; 51702; 59025; 59409; 84112; 85014; 85018; 85027; 86850; 86900; 86901; A9270-GY; J0290; J2300; J2590; J7030; J7050; J7120